=== PATIENT | male | born 1965 | race Caucasian/White ===

== ENCOUNTER → 2017-12-09 | Outpatient (CLI) | payer OTHER ==
[~2017-12-09] MED LIST: ACE3 PO; ALLO-2 PO; ASPI-715 PO; ATEN-65 PO; ATOR20TA65 PO; AZIT-17 PO; CYC10 PO; FLUT16SP19 NS; INDO50CA92 PO; KET10 PO; LEVO50TA86 PO; LISI20TA29 PO; LORA10CA3 PO; MELO-207 PO; METF500T4 PO; PRED20TA6 PO; TAMS0.4C70 PO
--- NOTE | 2017-12-09 12:06 | EKG ---
FACILITY[place] [facility] [place]IENT NAME: DEBORAH SUERO : [id number] MR: [id number]: [id number] EXAM DATE: ORDERING PHYSICIAN: ROSA CHILDS TECHNOLOGIST: WILFREDO Test Reason : CHEST PAIN Blood Pressure : / mmHG Vent. Rate : 078 BPM Atrial Rate : 078 BPM P-R Int : 142 ms QRS Dur : 090 ms QT Int : 402 ms P-R-T Axes : 067 028 033 degrees QTc Int : 458 ms Normal sinus rhythm Normal ECG When compared with ECG of 13-APR-2016 16:01, No significant change was found Referred By: AMADEO Confirmed By:
== END ==
LOC: RESP 11:15
PROVIDERS: ATTEND Internal Medicine
DX: Z02.9 Encounter for administrative examinations, unspecified (principal)